=== PATIENT | female | born 1950 | race African-American/Black ===

== ENCOUNTER 2017-05-17 02:23 | Inpatient (IN) | payer MEDICARE, OTHER ==
[~2017-05-17] VITALS: Ht 167.6 cm; Wt 97.5 kg
[2017-05-17] MEDS ORDERED: ACETAMINOPHEN 325 MG TAB PO STA (03:11)
[2017-05-17 03:31] LABS: BASOPHILS % 0.3 % (0.0-1.0); EOSINOPHILS % 0.1 % (0.0-6.0); HEMATOCRIT 25.4 % (34.2-44.1); HEMOGLOBIN 8.3 g/dL (12.0-16.0); MEAN CORPUSCULAR HEMOGLOBIN 32.7 pg (28-32); MEAN CORPUSCULAR HGB CONC 32.7 g/dL (31-35); MONOCYTES % 7.3 % (4.4-11.3); PLATELET COUNT 173 x10e3/uL (140-360); RED BLOOD COUNT 2.54 x10e6/uL (3.6-5.1); RED CELL DISTRIBUTION WIDTH 12.4 % (11.7-14.4)
[2017-05-17 03:32] LABS: LYMPHOCYTES # (AUTO) 0.6 (1.0-3.2); MONOCYTES # (AUTO) 0.5 (0.2-0.8)
[2017-05-17 03:33] LABS: BILIRUBIN,URINE 1+ (NEGATIVE); CLARITY,URINE CLOUDY (CLEAR); COLOR,URINE YELLOW (YELLOW); KETONES,URINE NEGATIVE (NEGATIVE); LEUKOCYTE ESTERASE ,URINE 2+ (NEGATIVE); NITRITE,URINE NEGATIVE (NEGATIVE); PROTEIN,URINE DIPSTICK 2+ (NEGATIVE); URINE UROBILINOGEN 0.2 mg/dL (0.2 - 1)
[2017-05-17 03:34] LABS: INR 1.09; PROTHROMBIN TIME 14.7 seconds (11.9-14.5)
[2017-05-17 03:35] LABS: STREPTOCOCCUS GRP A ANTIGEN NEGATIVE (NEGATIVE)
[2017-05-17 03:37] LABS: PARTIAL THROMBOPLASTIN TIME 32.7 seconds (23.8-35.5)
[2017-05-17 03:46] LABS: ALBUMIN/GLOBULIN RATIO 0.8 (0.8-2.0); ANION GAP 14.7 mmol/L (8-16); CREATININE, SERUM 2.06 mg/dL (0.57-1.11); INFLUENZAE A&B ANTIGEN (RAPID) NEGATIVE (NEGATIVE); MAGNESIUM 2.3 MG/DL (1.3-2.1)
[2017-05-17 03:47] LABS: BACTERIA,URINE MODERATE /HPF; EPITHELIAL CELLS,URINE FEW /LPF; WBC,URINE (MAN) >50 /HPF (0-5)
[2017-05-17 03:49] LABS: POTASSIUM 4.7 mmol/L (3.5-5.1)
[2017-05-17 03:52] LABS: CREATINE KINASE MB 0.5 ng/mL (0.00-5.00); TROPONIN I 0.033 ng/mL (0-0.300)
[2017-05-17 03:54] LABS: B-TYPE NATRIURETIC PEPTIDE2 496.2 pg/mL (0-100)
[2017-05-17] MEDS ORDERED: VANCOMYCIN 1GM/NS 250 ML 250 ML IV STA (05:03)
[2017-05-17 05:32] LABS: CARBAMAZEPINE (TEGRETOL) 8.02 ug/mL (4-12.0)
[2017-05-17] MEDS ORDERED: ONDANSETRON HCL INJ 2 MG/ML VIAL IV PRN (05:45)
--- NOTE | 2017-05-17 06:31 | Diagnostic Imaging Report ---
EXAMINATION: CHEST 2 VIEWS INDICATION: Fever. COMPARISON: None FINDINGS: TUBES and LINES: None. LUNGS: Lungs are not well inflated. Lungs are clear. There is no evidence of pneumonia or pulmonary edema. PLEURA: No pleural effusion or pneumothorax. HEART AND MEDIASTINUM: Cardiac size is mildly enlarged. There are atherosclerotic calcifications within the aorta. BONES AND SOFT TISSUES: No acute osseous lesion. Degenerative changes of the thoracic spine. Soft tissues are unremarkable. UPPER ABDOMEN: No free air under the diaphragm. IMPRESSION: No acute thoracic abnormality. Signed by: Dr. Marbin Vyas M.D. on 05/17/2017 6:28 AM
[2017-05-17] MEDS: CEFTRIAXONE SOD 1 GM VIAL IV SCH ×2 (06:40→18:01)
[2017-05-17] MEDS: SODIUM CHLORIDE 0.9% 1000ML 1,000 ML IV SCH ×2 (06:54→16:03)
[2017-05-17] MEDS: HYDROCODONE/APAP 7.5MG-325MG 1 EA TAB PO PRN ×2 (07:18→15:04)
[2017-05-17] MEDS ORDERED: OXYBUTYNIN CHLOR5 MG PO (07:29)
[2017-05-17] MEDS ORDERED: HYDRALAZINE HCL25 MG PO (07:29)
[2017-05-17] MEDS ORDERED: LOSARTAN POTAS100 MG PO (07:29)
[2017-05-17] MEDS ORDERED: CARBAMAZEPINE200 MG PO (07:29)
[2017-05-17] MEDS ORDERED: DEPAKOTE500 MG PO (07:29)
[2017-05-17] MEDS ORDERED: NAPROXEN500 MG PO (07:29)
[2017-05-17] MEDS ORDERED: CLORAZEPATE D3.75 MG PEG (07:29)
[2017-05-17] MEDS ORDERED: FLUOXETINE HCL20 MG PO (07:29)
[2017-05-17] MEDS ORDERED: FERROUS SULFAT325 MG PO (07:29)
[2017-05-17] MEDS ORDERED: HYDROCHLOROTHIA25 MG PO (07:29)
[2017-05-17] MEDS ORDERED: DICYCLOMINE HCL20 MG PO (07:29)
[2017-05-17] MEDS ORDERED: CLONIDINE HCL0.1 MG PO (07:29)
[2017-05-17] MEDS ORDERED: SUCRALFATE1 GM PO (07:29)
[2017-05-17] MEDS ORDERED: RANITIDINE HCL150 MG PO (07:29)
[2017-05-17] MEDS ORDERED: PRAVASTATIN SOD20 MG (07:29)
[2017-05-17] MEDS ORDERED: CARVEDILOL12.5 MG PO (07:29)
[2017-05-17] MEDS ORDERED: LEVOTHYROXINE75 MCG PO (07:29)
[2017-05-17] MEDS ORDERED: AMLODIPINE BESY10 MG PO (07:29)
[2017-05-17] MEDS ORDERED: VITAMIN D250000 UNIT PO (07:29)
[2017-05-17] MEDS ORDERED: LORATADINE10 MG PO (07:29)
--- NOTE | 2017-05-17 08:18 | Diagnostic Imaging Report ---
PROCEDURE: CT ABDOMEN AND PELVIS WITHOUT CONTRAST TECHNIQUE: The abdomen and pelvis were scanned utilizing a multidetector helical scanner from the diaphragm to the lesser trochanter. No oral or intravenous contrast was administered per renal stone protocol. Coronal and sagittal multiplanar reformations were obtained. COMPARISON: None. INDICATIONS: UTI, RIGHT FLANK PAIN FINDINGS: ABSENCE OF INTRAVENOUS CONTRAST DECREASES SENSITIVITY FOR DETECTION OF FOCAL LESIONS AND VASCULAR PATHOLOGY. LOWER THORAX: Cardiomegaly. Calcified granuloma in the right lower lobe. Ground glass opacities may reflect atelectasis or mild edema. HEPATOBILIARY: No focal hepatic lesion. No intrahepatic biliary ductal dilatation. Small radiopaque calculi layering within the dependent portion of the gallbladder. No pericholecystic inflammation. SPLEEN: No splenomegaly. PANCREAS: No focal masses or ductal dilatation. ADRENALS: Fullness of the left adrenal gland without discrete nodule. No right adrenal nodule. KIDNEYS/URETERS: No hydronephrosis. No renal, ureteral, or bladder calculi. There are multiple pelvic phleboliths. In addition, right and left retroperitoneal calcifications as seen on series 3 image 96 and image 101, respectively are felt to represent ovarian venous phleboliths rather than ureteral calculi in the absence of hydronephrosis or perinephric-periureteral inflammation. No gross renal mass lesion. PELVIC ORGANS/BLADDER: The urinary bladder is partially collapsed around a Martines catheter. The uterus is not identified and has presumably been removed. No adnexal mass. PERITONEUM / RETROPERITONEUM: No ascites. No pneumoperitoneum. LYMPH NODES: No pelvic sidewall, retroperitoneal, or mesenteric lymphadenopathy. VESSELS: Atherosclerotic calcification of the abdominal aorta, major branch vessels, and iliac arterial systems without aneurysmal dilatation. Otherwise limited evaluation in the absence of intravenous contrast. GI TRACT: The large bowel shows no distention or wall thickening. Fecal material is noted throughout the colon. The appendix is not definitively identified. No right lower quadrant inflammatory changes. Postsurgical changes of the stomach related to prior bariatric procedure. No small bowel dilatation to suggest obstruction. BONES AND SOFT TISSUES: No focal soft tissue abnormalities. Small fat containing umbilical hernia. Postsurgical changes of the anterior abdominal wall. No osseous destructive lesions. Multilevel degenerative disc changes and degenerative facet arthropathy of the lumbar spine. IMPRESSION: No CT evidence of urolithiasis. Indwelling Martines catheter with partial collapse of the urinary bladder. Cholelithiasis. Cardiomegaly with subsegmental atelectasis versus interstitial edema in the partially visualized lower lobes. Atherosclerotic vascular disease. Dictated by: Brian Ocampo M.D. on 05/17/2017 at 8:26 Electronically approved by: Brian Ocampo M.D. on 05/17/2017 at 8:26
[2017-05-17 11:19] LABS: CREATINE KINASE MB 0.6 ng/mL (0.00-5.00); TROPONIN I 0.039 ng/mL (0-0.300)
[2017-05-17 11:37] LABS: ANION GAP 14.9 mmol/L (8-16); CALCIUM 8.2 mg/dL (8.4-10.2); CREATININE, SERUM 1.99 mg/dL (0.57-1.11); POTASSIUM 3.9 mmol/L (3.5-5.1)
--- NOTE | 2017-05-17 12:52 | History and Physical ---
PRIMARY CARE PHYSICIAN: Dr. Brooks. CHIEF COMPLAINT: Fever and chills. HISTORY OF PRESENT ILLNESS: This is a 66-year-old woman with a history of hypertension, now developing fever and chills. Temperature was 100.4 Fahrenheit at home. Therefore, came to the hospital. Here she is found to have a urinary tract infection and acute kidney injury. She is admitted for further evaluation and management. Denies any diarrhea, denies any nausea or vomiting. Vital signs have been reviewed, her temperature 102.3 T-max. PAST MEDICAL HISTORY: Hypertension. Thyroid disease. Arthritis. PAST SURGICAL HISTORY: Eyes. Legs. Hysterectomy. Gastric bypass. 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 ALLERGIES: PER THE ELECTRONIC MEDICAL RECORDS. FAMILY HISTORY/SOCIAL HISTORY: Patient is single. She has 1 child. No alcohol, illicit drugs or cigarettes. MEDICATIONS: Per the electronic medical records. Reviewed. REVIEW OF SYSTEMS: Denies any dizziness, chest pain. PHYSICAL EXAMINATION GENERAL APPEARANCE: A tired-appearing woman resting in bed. HEENT: Anicteric. Pupils responsive to light. No oral lesions. CARDIOVASCULAR: Normal S1/S2. LUNGS: Moderate breath sounds. ABDOMEN: Soft, nontender, nondistended. EXTREMITIES: No edema or calf tenderness. : She has Martines in place. SKIN: Dry. PSYCHIATRIC: Flat affect. NEUROLOGICALLY: Alert and oriented x3. Moving all extremities. LABS: Reviewed. ASSESSMENT AND PLAN: This is a 66-year-old woman. 1. Urinary tract infection/fever. Will treat with antibiotics and follow up cultures. 2. Acute kidney injury. Rehydrate, then reassess. 3. Metabolic acidosis. Rehydrate patient and reassess later today. 4. Acute delirium, improving with antibiotics. 5. Thyroid disease. Will obtain a TSH. 6. Hypertension. Will continue her calcium channel fariba. 7. Prophylaxis. Will use SCDs. 8. Disposition. Follow up repeat labs later today. Job#: [id number] EV
[2017-05-17] MEDS: HYDRALAZINE HCL 25 MG TAB PO SCH ×3 (13:17→22:00)
[2017-05-17] MEDS: ACETAMINOPHEN 325 MG TAB PO PRN ×2 (15:50→21:44)
[2017-05-17] MEDS ORDERED: SODIUM CHLORIDE 0.9% 50ML 50 ML ONE (17:12)
[2017-05-17] MEDS: CARBAMAZEPINE 200 MG TAB PO SCH (17:30)
[2017-05-17] MEDS: CARVEDILOL 12.5 MG TAB PO SCH (17:30)
[2017-05-17] MEDS: SUCRALFATE 1 GM TAB PO SCH (18:01)
[2017-05-17] MEDS: DEPAKOTE DELAYED-RELEASE TAB 500 MG PO SCH (18:01)
[2017-05-17 20:12] LABS: CREATINE KINASE MB 0.5 ng/mL (0.00-5.00); TROPONIN I 0.068 ng/mL (0-0.300)
[2017-05-17] MEDS: CEFEPIME HCL 1 GM VIAL IV SCH (20:40)
[2017-05-17] MEDS: CLINDAMYCIN 300MG 50 ML IV SCH (21:09)
[2017-05-18] VITALS (7 sets, daily range): BP systolic 142–174; BP diastolic 59–85
[2017-05-18] MEDS: SODIUM CHLORIDE 0.9% 1000ML 1,000 ML IV SCH ×2 (01:38→23:00)
[2017-05-18] MEDS: ACETAMINOPHEN 325 MG TAB PO PRN ×2 (05:10→16:10)
[2017-05-18] MEDS: LEVOTHYROXINE SODIUM 75 MCG TAB PO SCH (05:38)
[2017-05-18] MEDS: CLINDAMYCIN 300MG 50 ML IV SCH ×3 (05:38→21:38)
[2017-05-18 07:20] LABS: BASOPHILS % 0.2 % (0.0-1.0); EOSINOPHILS % 0.4 % (0.0-6.0); LYMPHOCYTES # (AUTO) 0.7 (1.0-3.2); LYMPHOCYTES % 9.2 % (18.0-39.1); MEAN CORPUSCULAR HEMOGLOBIN 32.6 pg (28-32); MEAN CORPUSCULAR HGB CONC 33.2 g/dL (31-35); MEAN CORPUSCULAR VOLUME 98.3 fL (81-99); MONOCYTES # (AUTO) 0.7 (0.2-0.8); MONOCYTES % 8.9 % (4.4-11.3); NEUTROPHILS # (AUTO) 6.5 (2.1-6.9); NEUTROPHILS % 81.1 % (38.7-80.0); PLATELET COUNT 117 x10e3/uL (140-360); RED BLOOD COUNT 2.33 x10e6/uL (3.6-5.1); RED CELL DISTRIBUTION WIDTH 12.3 % (11.7-14.4)
[2017-05-18 07:32] LABS: HEMATOCRIT 22.9 % (34.2-44.1); HEMOGLOBIN 7.6 g/dL (12.0-16.0)
[2017-05-18 07:49] LABS: ALBUMIN 2.4 g/dL (3.5-5.0); ALBUMIN/GLOBULIN RATIO 0.7 (0.8-2.0); ANION GAP 11.9 mmol/L (8-16); CALCIUM 8.2 mg/dL (8.4-10.2); CREATININE, SERUM 1.67 mg/dL (0.57-1.11); POTASSIUM 3.9 mmol/L (3.5-5.1)
[2017-05-18] MEDS ORDERED: LEVOTHYROXINE SODIUM 75 MCG TAB PO SCH (09:00)
--- NOTE | 2017-05-18 09:11 | Progress Note ---
DATE: May 18, 2017 TIME: 8:37 a.m. OVERNIGHT: Patient was febrile at 101.2. T-max is 102.3. REVIEW OF SYSTEMS: Denies any dizziness. PHYSICAL EXAMINATION GENERAL: A tired-appearing woman resting in bed. HEENT: Anicteric. CARDIOVASCULAR: Normal S1 and S2. LUNGS: Moderate breath sounds. ABDOMEN: Soft, nontender and nondistended. EXTREMITIES: No edema. : She has a Martines. SKIN: Dry. PSYCHIATRIC: Flat affect. NEUROLOGICAL: Alert and oriented times 3. LABS: Reviewed. MEDICATIONS: Reviewed. ASSESSMENT: A 66-year-old woman with: 1. Severe sepsis present on admission with urinary tract infection and acute kidney injury. 2. Acute kidney injury. 3. Metabolic acidosis. 4. Acute delirium. 5. Thyroid disease, stage 1. 6. Hypertension. 7. Bacteremia: Cultures pending. Speciation and sensitivity pending. PLAN 1. Continue IV clindamycin and IV cefepime. May need to adjust antibiotics due to the patient's continued febrile state. She has no leukocytosis. 2. Worsening normocytic anemia. Hemoglobin dropped to 7.6. Will recheck the hemoglobin at noon today. 3. Renal dysfunction is improving. Will continue care. 4. Metabolic acidosis. Will add bicarb to the fluids. 5. Very low TSH. Will check free T4. 6. Utilize SCDs. No anticoagulants. 7. Continue supportive care and await culture results. Check hemoglobin later today. Continue PPI. Job#: [id number] JAY
[2017-05-18] MEDS: CARVEDILOL 12.5 MG TAB PO SCH ×2 (09:15→21:38)
[2017-05-18] MEDS: DEPAKOTE DELAYED-RELEASE TAB 500 MG PO SCH ×2 (09:15→16:02)
[2017-05-18] MEDS: FAMOTIDINE 20 MG/2 ML VIAL IV SCH ×2 (09:15→16:02)
[2017-05-18] MEDS: HYDRALAZINE HCL 25 MG TAB PO SCH ×4 (09:15→21:38)
[2017-05-18] MEDS: LORATADINE 10 MG TAB PO SCH (09:15)
[2017-05-18] MEDS: OXYBUTYNIN CHLORIDE 5 MG TAB PO SCH (09:15)
[2017-05-18] MEDS: SUCRALFATE 1 GM TAB PO SCH ×2 (09:15→16:02)
[2017-05-18] MEDS: CARBAMAZEPINE 200 MG TAB PO SCH ×2 (09:16→16:02)
[2017-05-18] MEDS: AMLODIPINE BESYLATE 10 MG TAB PO SCH (09:16)
[2017-05-18] MEDS: FLUOXETINE HCL 20 MG CAP PO SCH (09:16)
[2017-05-18 09:31] LABS: FERRITIN 508.32 ng/mL (4.63-204.00); FREE T4 (FREE THYROXINE) 0.72 ng/dL (0.8-1.8)
[2017-05-18 10:09] LABS: BAND NEUTROPHILS % (MANUAL) 12 %; EOSINOPHILS % (MANUAL) 2 % (0-7); LYMPHOCYTES % (MANUAL) 7 % (19-48); MONOCYTES % (MANUAL) 3 % (3.4-9.0); NEUTROPHILS % (MANUAL) 75 % (40-74)
[2017-05-18 10:13] LABS: ANISOCYTOSIS SLIGHT; HYPOCHROMASIA SLIGHT; PLATELET ESTIMATE SLIGHTLY DECREASED; PLATELET MORPHOLOGY COMMENT NORMAL; RBC MORPHOLOGY COMMENT NORMAL
[2017-05-18 12:25] LABS: HEMATOCRIT 22.8 % (34.2-44.1)
[2017-05-18 12:28] LABS: HEMOGLOBIN 7.6 g/dL (12.0-16.0)
[2017-05-18] MEDS ORDERED: CARVEDILOL 12.5 MG TAB PO ONE (12:30)
[2017-05-18] MEDS: CEFEPIME HCL 1 GM VIAL IV SCH (20:09)
[2017-05-18] MEDS: ALBUTEROL/IPRATROPIUM 3 ML NEB NEB PRN (20:50)
[2017-05-18] MEDS: HYDROCODONE/APAP 7.5MG-325MG 1 EA TAB PO PRN (21:39)
[2017-05-19] VITALS (7 sets, daily range): BP systolic 133–174; BP diastolic 57–76
[2017-05-19] MEDS: ACETAMINOPHEN 325 MG TAB PO PRN (04:31)
[2017-05-19] MEDS: CLINDAMYCIN 300MG 50 ML IV SCH (05:27)
[2017-05-19] MEDS: LEVOTHYROXINE SODIUM 75 MCG TAB PO SCH (05:27)
[2017-05-19] MEDS ORDERED: AZTREONAM 0.5 GM in WATER STERILE 10ML VIAL 10 ML IV SCH ×2 (08:15→11:00)
--- NOTE | 2017-05-19 08:42 | Progress Note ---
DATE: May 19, 2017 TIME: 8:10 a.m. OVERNIGHT: She had some fever. REVIEW OF SYSTEMS: Denies any dizziness. PHYSICAL EXAMINATION VITAL SIGNS: Reviewed. GENERAL: A tired-appearing woman resting in bed. HEENT: Anicteric. CARDIOVASCULAR: Normal S1 and S2. LUNGS: Moderate breath sounds. ABDOMEN: Soft, nontender and nondistended. EXTREMITIES: No edema. SKIN: Dry. PSYCHIATRIC: Flat affect. NEUROLOGICAL: Alert and oriented times 3. : Martines in place. LABS: Reviewed. MEDICATIONS: Reviewed. ASSESSMENT: A 66-year-old woman with: 1. Severe sepsis present on admission with urinary tract infection and acute kidney injury. 2. Acute kidney injury. 3. Metabolic acidosis. 4. Acute delirium. 5. Hypothyroidism. 6. Hypertension. 7. Bacteremia. PLAN 1. Continue IV clindamycin, IV cefepime. 2. Patient has gram-negative gisel bacteremia. Will continue antibiotics and follow up cultures. She has no leukocytosis. 3. Moderate to severe anemia. Hemoglobin was 7.6 yesterday, which was stable. We will recheck today. 4. Metabolic acidosis. Will add bicarb. 5. Acute kidney injury, improving. Will reassess today. 6. Iron deficiency anemia. Iron level is 10, percent saturation 5. Reduce IV fluids. 7. Low TSH and low T4. Will consult Dr. Lal to evaluate. Could represent subclinical disease. 8. Obtain labs today. 9. Receiving IV fluids with bicarb. Will add oral bicarb as noted above. 10. Continue IV clindamycin and IV cefepime. Will need to reculture the patient in terms of blood cultures. Also, will remove Martines. 11. Physical therapy consultation. Job#: [id number] JAY
[2017-05-19] MEDS: SODIUM BICARBONATE 650 MG TAB PO SCH ×2 (09:00→17:37)
[2017-05-19 09:07] LABS: BASOPHILS % 0.3 % (0.0-1.0); EOSINOPHILS # (AUTO) 0.3 (0.0-0.4); EOSINOPHILS % 4.1 % (0.0-6.0); HEMATOCRIT 24.6 % (34.2-44.1); LYMPHOCYTES % 12.3 % (18.0-39.1); MEAN CORPUSCULAR HEMOGLOBIN 31.9 pg (28-32); MEAN CORPUSCULAR HGB CONC 32.1 g/dL (31-35); MEAN CORPUSCULAR VOLUME 99.2 fL (81-99); MONOCYTES # (AUTO) 0.5 (0.2-0.8); MONOCYTES % 6.7 % (4.4-11.3); NEUTROPHILS % 76.3 % (38.7-80.0); PLATELET COUNT 137 x10e3/uL (140-360); RED BLOOD COUNT 2.48 x10e6/uL (3.6-5.1); RED CELL DISTRIBUTION WIDTH 12.6 % (11.7-14.4)
[2017-05-19 09:15] LABS: HEMOGLOBIN 7.9 g/dL (12.0-16.0)
[2017-05-19 09:25] LABS: ANION GAP 13.9 mmol/L (8-16); CALCIUM 8.3 mg/dL (8.4-10.2); CREATININE, SERUM 1.55 mg/dL (0.57-1.11); POTASSIUM 3.9 mmol/L (3.5-5.1)
[2017-05-19] MEDS: AMLODIPINE BESYLATE 10 MG TAB PO SCH (09:30)
[2017-05-19] MEDS: LORATADINE 10 MG TAB PO SCH (09:30)
[2017-05-19] MEDS: OXYBUTYNIN CHLORIDE 5 MG TAB PO SCH (09:30)
[2017-05-19] MEDS: HYDRALAZINE HCL 25 MG TAB PO SCH ×4 (09:30→20:42)
[2017-05-19] MEDS: CARVEDILOL 12.5 MG TAB PO SCH ×2 (09:30→20:42)
[2017-05-19] MEDS: FAMOTIDINE 20 MG/2 ML VIAL IV SCH ×2 (09:30→17:37)
[2017-05-19] MEDS: DEPAKOTE DELAYED-RELEASE TAB 500 MG PO SCH ×2 (09:30→17:37)
[2017-05-19] MEDS: SUCRALFATE 1 GM TAB PO SCH ×2 (09:30→17:37)
[2017-05-19] MEDS: FLUOXETINE HCL 20 MG CAP PO SCH (09:30)
[2017-05-19] MEDS: CARBAMAZEPINE 200 MG TAB PO SCH ×2 (09:31→17:37)
[2017-05-19] MEDS: SODIUM FERRIC GLUCONATE COMPLX 125 MG in SODIUM CHLORIDE 0.9% 100 ML 100 ML IV SCH (10:00)
[2017-05-19] MEDS: SODIUM CHLORIDE 0.9% 1000ML 1,000 ML IV SCH ×2 (10:53→17:42)
[2017-05-19] MEDS ORDERED: AZTREONAM 1 GM VIAL IV SCH (11:00)
[2017-05-19] MEDS: AZTREONAM IV SCH ×2 (11:00→18:28)
[2017-05-19] MEDS ORDERED: AZTREONAM (AZACTAM) 0.5 GM in WATER STERILE 10ML VIAL 10 ML IV SCH (11:00)
[2017-05-19] MEDS: WATER STERILE IV SCH ×2 (11:00→18:28)
[2017-05-19] MEDS: HYDROCODONE/APAP 7.5MG-325MG 1 EA TAB PO PRN ×2 (11:59→20:58)
--- NOTE | 2017-05-19 15:15 | Consultation ---
DATE OF CONSULTATION: May 19, 2017 ENDOCRINE CONSULTATION This is a patient of Dr. Werner. Thank you very much for referring this patient. This is a 66-year-old black female who is referred to me for evaluation of abnormal thyroid function tests. Patient came to the hospital with a history of fever, chills. She was found to have urinary tract infection. She also has history of hypothyroidism and has been on Synthroid 0.075 mg once daily. During the hospital stay, her TSH is low. Patient also has a very strong family history of diabetes. Her blood sugars have been running between 122 and 190. Her hemoglobin is significantly low, and this patient is getting iron transfusions for the same as well. PHYSICAL EXAMINATION: GENERAL: Today patient is alert, awake, a little bit apprehensive. She is moderately overweight. VITAL SIGNS: Her heart rate is around 78. Blood pressure 130/80 mmHg. HEENT: Examination essentially unremarkable. Thyroid is barely palpable. Clinically she looks near euthyroid. CHEST: Bilateral vesicular breathing. She has mild bronchospasm. CARDIAC: Both 1st and 2nd heart sounds. There is no 3rd or 4th heart sound. Ejection sound grade 2/6. Patient has tenderness in the epigastric and the right upper quadrant area. CLINICAL IMPRESSION: 1. History of hypothyroidism. 2. Acute urinary tract infection. 3. Sepsis. 4. Hypertension. 5. Rule out diabetes mellitus with hyperglycemia. The plan at this time is to do a free T3, free T4, TSH. Hold the thyroid medications for now. Will also do a hemoglobin A1c and monitor her blood sugars closely. Thanks for referring this patient. I will be following this patient with you. Job#: [id number] FRANCOIS
[2017-05-19] MEDS: NYSTATIN 15 GM POWDER UD BTL TOP SCH ×2 (15:29→20:42)
[2017-05-19] MEDS: ALBUTEROL/IPRATROPIUM 3 ML NEB NEB PRN (19:25)
[2017-05-19] MEDS: CEFEPIME HCL 1 GM VIAL IV SCH (20:39)
[2017-05-20] VITALS (7 sets, daily range): BP systolic 134–200; BP diastolic 58–99
[2017-05-20] MEDS: SODIUM CHLORIDE 0.9% 1000ML 1,000 ML IV SCH ×2 (03:38→14:57)
[2017-05-20] MEDS: WATER STERILE IV SCH ×3 (03:45→19:59)
[2017-05-20] MEDS: AZTREONAM IV SCH ×3 (03:45→19:59)
[2017-05-20] MEDS: LEVOTHYROXINE SODIUM 75 MCG TAB PO SCH (06:49)
--- NOTE | 2017-05-20 08:16 | Progress Note ---
DATE: May 20, 2017 TIME: 7:20 a.m. OVERNIGHT: No events. REVIEW OF SYSTEMS: Denies any dizziness or chest pain. Vital signs reviewed. PHYSICAL EXAMINATION GENERAL: A tired-appearing woman resting in bed. HEENT: Anicteric. CARDIOVASCULAR: Normal S1 and S2. LUNGS: Moderate breath sounds. ABDOMEN: Soft, nontender and nondistended. EXTREMITIES: No edema. SKIN: Dry. PSYCHIATRIC: Flat affect. LABS: Reviewed. MEDICATIONS: Reviewed. ASSESSMENT: A 66-year-old woman with 1. Severe sepsis present on admission with urinary tract infection and acute kidney injury. 2. Acute kidney injury. 3. Metabolic acidosis. 4. Acute delirium. 5. Hypothyroidism. Low thyroid-stimulating hormone and low T4. 6. Hypertension. 7. Bacteremia with Escherichia coli. PLAN 1. Follow up thyroid function studies by Dr. Lal. Thyroid medicines on hold. 2. Continue IV cefepime for bacteremia. Follow up sensitivity. 3. Continue IV fluids. 4. Continue bicarbonate. 5. Continue IV aztreonam. 6. Check H and H. 7. Check BMP. 8. LTAC versus SNF evaluation. Job#: [id number]
[2017-05-20] MEDS: SODIUM FERRIC GLUCONATE COMPLX 125 MG in SODIUM CHLORIDE 0.9% 100 ML 100 ML IV SCH (09:00)
[2017-05-20] MEDS: FAMOTIDINE 20 MG/2 ML VIAL IV SCH ×2 (09:18→17:03)
[2017-05-20] MEDS: OXYBUTYNIN CHLORIDE 5 MG TAB PO SCH (09:18)
[2017-05-20] MEDS: CARBAMAZEPINE 200 MG TAB PO SCH ×2 (09:18→17:03)
[2017-05-20] MEDS: DEPAKOTE DELAYED-RELEASE TAB 500 MG PO SCH ×2 (09:18→17:03)
[2017-05-20] MEDS: LORATADINE 10 MG TAB PO SCH (09:18)
[2017-05-20] MEDS: SODIUM BICARBONATE 650 MG TAB PO SCH ×2 (09:18→17:03)
[2017-05-20] MEDS: HYDRALAZINE HCL 25 MG TAB PO SCH ×4 (09:18→20:04)
[2017-05-20] MEDS: CARVEDILOL 12.5 MG TAB PO SCH ×2 (09:18→20:04)
[2017-05-20] MEDS: FLUOXETINE HCL 20 MG CAP PO SCH (09:18)
[2017-05-20] MEDS: NYSTATIN 15 GM POWDER UD BTL TOP SCH ×3 (09:18→21:41)
[2017-05-20] MEDS: SUCRALFATE 1 GM TAB PO SCH ×2 (09:18→17:03)
[2017-05-20] MEDS: AMLODIPINE BESYLATE 10 MG TAB PO SCH (09:18)
[2017-05-20] MEDS ORDERED: WATER STERILE 10 ML VIAL INJ PRN (17:00)
[2017-05-20] MEDS: CEFEPIME HCL 1 GM VIAL IV SCH (20:00)
[2017-05-20] MEDS ORDERED: ALPRAZOLAM 0.25 MG TAB PO PRN (20:00)
[2017-05-20] MEDS ORDERED: LABETALOL HCL IV 5 MG/ML 20ML MDV IV ONE (20:15)
[2017-05-20] MEDS: HYDROCODONE/APAP 7.5MG-325MG 1 EA TAB PO PRN (20:25)
[2017-05-21] VITALS: BP 157/81
[2017-05-21] MEDS: AZTREONAM IV SCH ×3 (02:10→19:15)
[2017-05-21] MEDS: WATER STERILE IV SCH ×3 (02:10→19:15)
[2017-05-21] MEDS: SODIUM CHLORIDE 0.9% 1000ML 1,000 ML IV SCH ×2 (02:10→19:38)
[2017-05-21 04:00] VITALS: BP 157/80
[2017-05-21] MEDS: LEVOTHYROXINE SODIUM 75 MCG TAB PO SCH (05:17)
[2017-05-21] MEDS: HYDROCODONE/APAP 7.5MG-325MG 1 EA TAB PO PRN ×2 (05:22→20:56)
[2017-05-21 08:00] VITALS: BP 178/77
[2017-05-21] MEDS: FAMOTIDINE 20 MG/2 ML VIAL IV SCH ×2 (09:38→17:37)
[2017-05-21] MEDS: LORATADINE 10 MG TAB PO SCH (09:38)
[2017-05-21] MEDS: HYDRALAZINE HCL 25 MG TAB PO SCH ×4 (09:38→20:47)
[2017-05-21] MEDS: SUCRALFATE 1 GM TAB PO SCH ×2 (09:38→17:37)
[2017-05-21] MEDS: OXYBUTYNIN CHLORIDE 5 MG TAB PO SCH (09:39)
[2017-05-21] MEDS: NYSTATIN 15 GM POWDER UD BTL TOP SCH ×3 (09:39→20:57)
[2017-05-21] MEDS: DEPAKOTE DELAYED-RELEASE TAB 500 MG PO SCH ×2 (09:39→17:37)
[2017-05-21] MEDS: CARVEDILOL 12.5 MG TAB PO SCH ×2 (09:39→20:48)
[2017-05-21] MEDS: CARBAMAZEPINE 200 MG TAB PO SCH ×2 (09:39→17:37)
[2017-05-21] MEDS: SODIUM FERRIC GLUCONATE COMPLX 125 MG in SODIUM CHLORIDE 0.9% 100 ML 100 ML IV SCH (09:39)
[2017-05-21] MEDS: SODIUM BICARBONATE 650 MG TAB PO SCH ×2 (09:39→17:37)
[2017-05-21] MEDS: AMLODIPINE BESYLATE 10 MG TAB PO SCH (09:39)
[2017-05-21] MEDS: FLUOXETINE HCL 20 MG CAP PO SCH (09:39)
[2017-05-21 12:00] VITALS: BP 141/72
[2017-05-21 16:00] VITALS: BP 180/82
[2017-05-21 20:00] VITALS: BP 152/75
[2017-05-21] MEDS: CEFEPIME HCL 1 GM VIAL IV SCH (20:46)
[2017-05-22] VITALS: BP 154/71
[2017-05-22] MEDS: HYDROCODONE/APAP 7.5MG-325MG 1 EA TAB PO PRN ×2 (02:59→21:02)
[2017-05-22] MEDS: WATER STERILE IV SCH ×3 (03:00→17:52)
[2017-05-22] MEDS: AZTREONAM IV SCH ×3 (03:00→17:52)
[2017-05-22] MEDS: ACETAMINOPHEN 325 MG TAB PO PRN ×2 (03:00→20:23)
[2017-05-22 04:00] VITALS: BP 167/76
[2017-05-22] MEDS: LEVOTHYROXINE SODIUM 75 MCG TAB PO SCH (06:13)
[2017-05-22 08:00] VITALS: BP 200/86
[2017-05-22] MEDS: CARVEDILOL 12.5 MG TAB PO SCH ×2 (08:00→20:23)
[2017-05-22] MEDS: LORATADINE 10 MG TAB PO SCH (08:00)
[2017-05-22] MEDS: FAMOTIDINE 20 MG/2 ML VIAL IV SCH ×2 (08:00→17:07)
[2017-05-22] MEDS: SUCRALFATE 1 GM TAB PO SCH ×2 (08:00→17:07)
[2017-05-22] MEDS: HYDRALAZINE HCL 25 MG TAB PO SCH ×4 (08:00→20:22)
[2017-05-22] MEDS: CARBAMAZEPINE 200 MG TAB PO SCH ×2 (08:01→17:07)
[2017-05-22] MEDS: NYSTATIN 15 GM POWDER UD BTL TOP SCH ×3 (08:01→21:00)
[2017-05-22] MEDS: DEPAKOTE DELAYED-RELEASE TAB 500 MG PO SCH ×2 (08:01→17:07)
[2017-05-22] MEDS: AMLODIPINE BESYLATE 10 MG TAB PO SCH (08:01)
[2017-05-22] MEDS: OXYBUTYNIN CHLORIDE 5 MG TAB PO SCH (08:01)
[2017-05-22] MEDS: FLUOXETINE HCL 20 MG CAP PO SCH (08:01)
[2017-05-22] MEDS: SODIUM BICARBONATE 650 MG TAB PO SCH ×2 (08:01→17:07)
[2017-05-22] MEDS: SODIUM FERRIC GLUCONATE COMPLX 125 MG in SODIUM CHLORIDE 0.9% 100 ML 100 ML IV SCH (09:00)
--- NOTE | 2017-05-22 09:45 | Progress Note ---
DATE: May 21, 2017 at 1:55 p.m. SUBJECTIVE: Overnight no events. REVIEW OF SYSTEMS: Denies any dizziness or chest pain. OBJECTIVE VITAL SIGNS: Reviewed. GENERAL APPEARANCE: A tired-appearing woman walking in the hallway with physical therapist. CARDIOVASCULAR: Good chest expansion. ABDOMEN: Soft and nontender. EXTREMITIES: There is no edema. NEUROLOGIC: Alert and appropriate. Moving all extremities. SKIN: Dry. PSYCHIATRIC: Normal affect. LABS: Reviewed. MEDICATIONS: Reviewed. ASSESSMENT AND PLAN: A 66-year-old woman. 1. Severe sepsis. Presented on admission with urinary tract infection and acute kidney injury. 2. Acute kidney injury. 3. Metabolic acidosis. 4. Acute delirium. 5. Hypothyroidism. 6. Hypertension. 7. Bacteremia with Escherichia coli. 8. Worsening normocytic anemia. PLAN: 1. Continue IV cefepime for bacteremia. 2. Received IV fluids. 3. Received IV aztreonam. 4. Obtain hemoglobin and hematocrit today. 5. Renal function continues to improve. 6. Hemoglobin A1c was 4.9. Today hemoglobin was 12.9. 7. Repeat blood cultures. Negative x 48 hours. 8. Placement is pending. Job#: [id number]
[2017-05-22 10:29] LABS: BASOPHILS % 0.7 % (0.0-1.0); EOSINOPHILS # (AUTO) 0.3 (0.0-0.4); HEMATOCRIT 24.6 % (34.2-44.1); LYMPHOCYTES # (AUTO) 1.2 (1.0-3.2); LYMPHOCYTES % 21.1 % (18.0-39.1); MEAN CORPUSCULAR HEMOGLOBIN 32.2 pg (28-32); MEAN CORPUSCULAR HGB CONC 32.1 g/dL (31-35); MEAN CORPUSCULAR VOLUME 100.4 fL (81-99); MONOCYTES # (AUTO) 0.5 (0.2-0.8); MONOCYTES % 8.8 % (4.4-11.3); NEUTROPHILS # (AUTO) 3.5 (2.1-6.9); NEUTROPHILS % 61.1 % (38.7-80.0); PLATELET COUNT 219 x10e3/uL (140-360); RED BLOOD COUNT 2.45 x10e6/uL (3.6-5.1); RED CELL DISTRIBUTION WIDTH 13.2 % (11.7-14.4)
[2017-05-22 10:32] LABS: HEMOGLOBIN 7.9 g/dL (12.0-16.0)
[2017-05-22 10:43] LABS: ANION GAP 14.2 mmol/L (8-16); BLOOD UREA NITROGEN 24 mg/dL (7-26); BUN/CREATININE RATIO 24 (6-25); CALCIUM 8.2 mg/dL (8.4-10.2); CARBON DIOXIDE 15 mmol/L (22-29); CHLORIDE 118 mmol/L (98-107); EST GLOMERULAR FILTRATION RATE > 60 ML/MIN (60-); GLUCOSE 114 mg/dL (74-118); POTASSIUM 4.2 mmol/L (3.5-5.1); SODIUM 143 mmol/L (136-145)
[2017-05-22] MEDS: NIFEDIPINE CR 30 MG TAB PO SCH ×2 (11:30→20:23)
[2017-05-22 12:00] VITALS: BP 174/69
[2017-05-22 12:16] LABS: BAND NEUTROPHILS % (MANUAL) 11 %; EOSINOPHILS % (MANUAL) 5 % (0-7); LYMPHOCYTES % (MANUAL) 31 % (19-48); MONOCYTES % (MANUAL) 1 % (3.4-9.0); NEUTROPHILS % (MANUAL) 52 % (40-74); PLATELET ESTIMATE ADEQUATE; PLATELET MORPHOLOGY COMMENT NORMAL; RBC MORPHOLOGY COMMENT NORMAL
[2017-05-22] MEDS: SODIUM CHLORIDE 0.9% 1000ML 1,000 ML IV SCH ×2 (15:38→17:11)
[2017-05-22 16:00] VITALS: BP 181/83
[2017-05-22 17:11] VITALS: BP 181/83
[2017-05-22] MEDS: CEFEPIME HCL 1 GM VIAL IV SCH (20:22)
[2017-05-23] VITALS (7 sets, daily range): BP systolic 151–205; BP diastolic 62–96
[2017-05-23] MEDS: AZTREONAM IV SCH (02:15)
[2017-05-23] MEDS: WATER STERILE IV SCH (02:15)
--- NOTE | 2017-05-23 04:10 | Progress Note ---
DATE: May 22, 2017 TIME: 10 a.m. OVERNIGHT: No events. REVIEW OF SYSTEMS: Denies any dizziness. PHYSICAL EXAMINATION VITAL SIGNS: Reviewed. Blood pressure elevated. GENERAL: A tired-appearing woman resting in bed. HEENT: Anicteric. CARDIOVASCULAR: Normal S1 and S2. LUNGS: Moderate breath sounds. ABDOMEN: Soft, nontender and nondistended. EXTREMITIES: No edema. SKIN: Dry. PSYCHIATRIC: Normal affect. LABS: Reviewed. MEDICATIONS: Reviewed. ASSESSMENT: A 66-year-old woman with: 1. Severe sepsis. 2. Acute kidney injury. 3. Metabolic acidosis. 4. Acute delirium. 5. Hypothyroidism. 6. Hypertension. 7. Bacteremia with Escherichia coli. PLAN 1. Follow up blood counts. 2. Titrate antihypertensive medications up and change calcium channel fariba to control blood pressure. 3. Continue IV cefepime. 4. Continue anxiolytics. 5. Continue physical therapy. 6. Discharge planning. Follow up repeat blood cultures. Job#: [id number] OR
[2017-05-23] MEDS: HYDROCODONE/APAP 7.5MG-325MG 1 EA TAB PO PRN ×2 (05:56→19:51)
[2017-05-23] MEDS: LEVOTHYROXINE SODIUM 75 MCG TAB PO SCH (05:56)
[2017-05-23 07:31] LABS: BASOPHILS % 0.4 % (0.0-1.0); EOSINOPHILS # (AUTO) 0.4 (0.0-0.4); EOSINOPHILS % 5.5 % (0.0-6.0); LYMPHOCYTES # (AUTO) 1.4 (1.0-3.2); LYMPHOCYTES % 20.2 % (18.0-39.1); MEAN CORPUSCULAR HEMOGLOBIN 32.5 pg (28-32); MEAN CORPUSCULAR HGB CONC 32.7 g/dL (31-35); MEAN CORPUSCULAR VOLUME 99.5 fL (81-99); MONOCYTES # (AUTO) 0.5 (0.2-0.8); MONOCYTES % 7.4 % (4.4-11.3); NEUTROPHILS # (AUTO) 4.2 (2.1-6.9); NEUTROPHILS % 62.5 % (38.7-80.0); PLATELET COUNT 258 x10e3/uL (140-360); RED BLOOD COUNT 2.12 x10e6/uL (3.6-5.1); RED CELL DISTRIBUTION WIDTH 13.2 % (11.7-14.4)
[2017-05-23 07:34] LABS: HEMATOCRIT 21.1 % (34.2-44.1)
[2017-05-23 07:35] LABS: HEMOGLOBIN 6.9 g/dL (12.0-16.0)
[2017-05-23] MEDS: FAMOTIDINE 20 MG/2 ML VIAL IV SCH ×2 (10:08→17:45)
[2017-05-23] MEDS: CARVEDILOL 12.5 MG TAB PO SCH ×2 (10:09→20:17)
[2017-05-23] MEDS: FLUOXETINE HCL 20 MG CAP PO SCH (10:09)
[2017-05-23] MEDS: OXYBUTYNIN CHLORIDE 5 MG TAB PO SCH (10:09)
[2017-05-23] MEDS: HYDRALAZINE HCL 25 MG TAB PO SCH ×4 (10:09→20:16)
[2017-05-23] MEDS: SUCRALFATE 1 GM TAB PO SCH ×2 (10:09→17:45)
[2017-05-23] MEDS: NIFEDIPINE CR 30 MG TAB PO SCH ×2 (10:09→20:17)
[2017-05-23] MEDS: DEPAKOTE DELAYED-RELEASE TAB 500 MG PO SCH ×2 (10:09→17:45)
[2017-05-23] MEDS: LORATADINE 10 MG TAB PO SCH (10:09)
[2017-05-23] MEDS: SODIUM BICARBONATE 650 MG TAB PO SCH ×2 (10:09→17:45)
[2017-05-23] MEDS: CARBAMAZEPINE 200 MG TAB PO SCH ×2 (10:09→17:45)
[2017-05-23] MEDS: NYSTATIN 15 GM POWDER UD BTL TOP SCH ×3 (10:10→21:00)
[2017-05-23] MEDS: SODIUM FERRIC GLUCONATE COMPLX 125 MG in SODIUM CHLORIDE 0.9% 100 ML 100 ML IV SCH (10:52)
[2017-05-23] MEDS: AZTREONAM (AZACTAM) 0.5 GM in SODIUM CHLORIDE 0.9% 50ML 50 ML IV SCH ×2 (12:14→19:51)
--- NOTE | 2017-05-23 14:02 | Progress Note ---
DATE: May 23, 2017 TIME: 08:05 a.m. OVERNIGHT: No events. REVIEW OF SYSTEMS: Denies any dizziness. PHYSICAL EXAMINATION VITAL SIGNS: Reviewed. GENERAL: A tired-appearing woman resting in bed. HEENT: Anicteric. CARDIOVASCULAR: Normal S1 and S2, no heart murmurs. ABDOMEN: Soft, nontender, and nondistended. EXTREMITIES: No edema. SKIN: Dry. PSYCHIATRIC: Flat affect. LABS: Reviewed. MEDICATIONS: Reviewed. ASSESSMENT: A 66-year-old woman with: 1. Severe sepsis/bacteremia with Escherichia coli. 2. Acute kidney injury/metabolic acidosis. 3. Acute delirium/hypothyroidism. 4. Hypertension. 5. Severe anemia, which is worse today. Hemoglobin is 6.9, previous is 7.9. Patient is on IV Folicet and ferrous sulfate. We will transfuse this patient if she is not [employer] and we will continue IV Pepcid q.12 and Folicet. PLAN 1. Continue IV antibiotics, IV cefepime. 2. Continue anxiolytic medications. 3. Will send blood counts, hemoglobin is 6.9. 4. Acute kidney injury is resolving. 5. Discharge plan to skilled facility. Will continue IV antibiotics. Patient is on IV cefepime and IV aztreonam. Job#: [id number] SANDRO
[2017-05-23] MEDS: SODIUM CHLORIDE 0.9% 1000ML 1,000 ML IV SCH (17:44)
[2017-05-23] MEDS: CEFEPIME HCL 1 GM VIAL IV SCH (21:29)
[2017-05-24] VITALS (7 sets, daily range): BP systolic 157–208; BP diastolic 69–95
[2017-05-24] MEDS: HYDROCODONE/APAP 7.5MG-325MG 1 EA TAB PO PRN (01:52)
[2017-05-24] MEDS: AZTREONAM (AZACTAM) 0.5 GM in SODIUM CHLORIDE 0.9% 50ML 50 ML IV SCH ×3 (03:30→19:50)
[2017-05-24] MEDS: LEVOTHYROXINE SODIUM 75 MCG TAB PO SCH (06:09)
[2017-05-24 07:27] LABS: BASOPHILS # (AUTO) 0.1 (0.0-0.1); BASOPHILS % 0.7 % (0.0-1.0); EOSINOPHILS # (AUTO) 0.4 (0.0-0.4); LYMPHOCYTES # (AUTO) 1.7 (1.0-3.2); LYMPHOCYTES % 24.4 % (18.0-39.1); MEAN CORPUSCULAR HEMOGLOBIN 32.1 pg (28-32); MEAN CORPUSCULAR HGB CONC 32.7 g/dL (31-35); MEAN CORPUSCULAR VOLUME 98.1 fL (81-99); MONOCYTES # (AUTO) 0.5 (0.2-0.8); MONOCYTES % 7.4 % (4.4-11.3); NEUTROPHILS # (AUTO) 4.2 (2.1-6.9); PLATELET COUNT 292 x10e3/uL (140-360); RED BLOOD COUNT 2.09 x10e6/uL (3.6-5.1); RED CELL DISTRIBUTION WIDTH 13.2 % (11.7-14.4)
[2017-05-24 07:35] LABS: HEMATOCRIT 20.5 % (34.2-44.1); HEMOGLOBIN 6.7 g/dL (12.0-16.0)
[2017-05-24] MEDS ORDERED: FUROSEMIDE INJ 10 MG/ML 2 ML VIAL IV PRN (08:30)
[2017-05-24] MEDS ORDERED: HYDRALAZINE HCL 25 MG TAB PO SCH (09:00)
[2017-05-24] MEDS ORDERED: PANTOPRAZOLE 40 MG 10ML VIAL IV SCH (09:00)
[2017-05-24] MEDS ORDERED: SODIUM CHLORIDE 0.9% 250ML 250 ML IV ONE (09:00)
[2017-05-24] MEDS: SUCRALFATE 1 GM TAB PO SCH ×2 (09:35→17:00)
[2017-05-24] MEDS: LORATADINE 10 MG TAB PO SCH (09:35)
[2017-05-24] MEDS: FAMOTIDINE 20 MG/2 ML VIAL IV SCH ×2 (09:35→17:00)
[2017-05-24] MEDS: PANTOPRAZOLE 40 MG 10ML VIAL IV SCH ×2 (09:35→17:00)
[2017-05-24] MEDS: NYSTATIN 15 GM POWDER UD BTL TOP SCH ×3 (09:36→20:18)
[2017-05-24] MEDS: DEPAKOTE DELAYED-RELEASE TAB 500 MG PO SCH ×2 (09:36→17:00)
[2017-05-24] MEDS: CARVEDILOL 12.5 MG TAB PO SCH ×2 (09:36→19:50)
[2017-05-24] MEDS: NIFEDIPINE CR 30 MG TAB PO SCH ×2 (09:36→19:50)
[2017-05-24] MEDS: SODIUM BICARBONATE 650 MG TAB PO SCH ×2 (09:36→17:00)
[2017-05-24] MEDS: HYDRALAZINE HCL 100 MG TABLET PO SCH ×3 (09:36→21:58)
[2017-05-24] MEDS: FLUOXETINE HCL 20 MG CAP PO SCH (09:36)
[2017-05-24] MEDS: ALPRAZOLAM 0.5 MG TAB PO SCH ×3 (09:36→20:18)
[2017-05-24] MEDS: CARBAMAZEPINE 200 MG TAB PO SCH ×2 (09:36→17:00)
[2017-05-24] MEDS: OXYBUTYNIN CHLORIDE 5 MG TAB PO SCH (09:36)
[2017-05-24 10:31] LABS: EOSINOPHILS % (MANUAL) 2 % (0-7); LYMPHOCYTES % (MANUAL) 27 % (19-48); METAMYELOCYTES % (MANUAL) 2 % (0-0); MONOCYTES % (MANUAL) 6 % (3.4-9.0); MYELOCYTES % (MANUAL) 1 % (0-0); NEUTROPHILS % (MANUAL) 61 % (40-74)
[2017-05-24 10:34] LABS: HYPOCHROMASIA SLIGHT; PLATELET ESTIMATE ADEQUATE; PLATELET MORPHOLOGY COMMENT NORMAL; RBC MORPHOLOGY COMMENT NORMAL
[2017-05-24] MEDS ORDERED: SODIUM CHLORIDE 0.9% 250ML 250 ML IV PRN (12:45)
[2017-05-24] MEDS: TRAMADOL HCL 50 MG TAB PO SCH ×2 (15:00→21:59)
--- NOTE | 2017-05-24 18:43 | Progress Note ---
DATE: May 24, 2017 TIME OF SERVICE: 7:45 a.m. SUBJECTIVE: Overnight no events. REVIEW OF SYSTEMS: Denies any dizziness. OBJECTIVE VITAL SIGNS: Reviewed. GENERAL: A tired-appearing woman resting in bed. HEENT: Anicteric. CARDIOVASCULAR: Normal S1 and S2. LUNGS: Moderate breath sounds. ABDOMEN: Soft, nontender, and nondistended. EXTREMITIES: No edema. SKIN: Dry. PSYCHIATRIC: Flat affect. LABS: Reviewed. MEDICATIONS: Reviewed. ASSESSMENT: A 66-year-old woman with: 1. Severe sepsis/bacteremia with Escherichia coli. 2. Acute kidney injury/metabolic acidosis. 3. Acute delirium/hypothyroidism. 4. Hypertension. 5. Severe anemia. 6. Iron deficiency. PLAN 1. Continue IV antibiotics. 2. Continue iron replacement therapy. 3. Blood transfusion. 4. Follow up renal function 5. Give 3 units packed red blood cell transfusion today. 6. Acute kidney injury is resolving. 7. Control blood pressure by titrating antihypertensive medications. 8. Treat anxiety with Xanax. 9. Discharge plan to skilled facility is still pending. Job#: [id number]
[2017-05-24] MEDS: CEFEPIME HCL 1 GM VIAL IV SCH (21:58)
[2017-05-24] MEDS ORDERED: SODIUM CHLORIDE 0.9% 250ML 250 ML ONE (22:06)
[2017-05-25] VITALS: BP 173/68
[2017-05-25] MEDS: AZTREONAM (AZACTAM) 0.5 GM in SODIUM CHLORIDE 0.9% 50ML 50 ML IV SCH ×2 (03:49→12:00)
[2017-05-25 04:00] VITALS: BP 213/86
[2017-05-25] MEDS ORDERED: LABETALOL HCL IV 5 MG/ML 20ML MDV IV PRN (04:00)
[2017-05-25] MEDS: LEVOTHYROXINE SODIUM 75 MCG TAB PO SCH (06:52)
[2017-05-25] MEDS: TRAMADOL HCL 50 MG TAB PO SCH ×2 (06:53→14:30)
[2017-05-25 07:23] LABS: BASOPHILS # (AUTO) 0.1 (0.0-0.1); BASOPHILS % 0.6 % (0.0-1.0); EOSINOPHILS # (AUTO) 0.5 (0.0-0.4); EOSINOPHILS % 5.7 % (0.0-6.0); HEMATOCRIT 27.3 % (34.2-44.1); LYMPHOCYTES # (AUTO) 1.6 (1.0-3.2); LYMPHOCYTES % 18.8 % (18.0-39.1); MEAN CORPUSCULAR HEMOGLOBIN 30.8 pg (28-32); MEAN CORPUSCULAR VOLUME 93.5 fL (81-99); MONOCYTES # (AUTO) 0.5 (0.2-0.8); MONOCYTES % 6.1 % (4.4-11.3); NEUTROPHILS # (AUTO) 5.5 (2.1-6.9); NEUTROPHILS % 66.1 % (38.7-80.0); PLATELET COUNT 296 x10e3/uL (140-360); RED BLOOD COUNT 2.92 x10e6/uL (3.6-5.1); RED CELL DISTRIBUTION WIDTH 16.1 % (11.7-14.4)
[2017-05-25] MEDS: FAMOTIDINE 20 MG/2 ML VIAL IV SCH (08:20)
[2017-05-25] MEDS: CARBAMAZEPINE 200 MG TAB PO SCH (08:20)
[2017-05-25] MEDS: NYSTATIN 15 GM POWDER UD BTL TOP SCH (08:20)
[2017-05-25] MEDS: SUCRALFATE 1 GM TAB PO SCH (08:20)
[2017-05-25] MEDS: HYDRALAZINE HCL 100 MG TABLET PO SCH ×2 (08:20→14:30)
[2017-05-25] MEDS: CLONIDINE HCL 0.2 MG TAB PO PRN ×2 (08:20→15:18)
[2017-05-25] MEDS: ALPRAZOLAM 0.5 MG TAB PO SCH ×2 (08:20→14:45)
[2017-05-25] MEDS: DEPAKOTE DELAYED-RELEASE TAB 500 MG PO SCH (08:20)
[2017-05-25] MEDS: CARVEDILOL 12.5 MG TAB PO SCH (08:20)
[2017-05-25] MEDS: LORATADINE 10 MG TAB PO SCH (08:20)
[2017-05-25] MEDS: NIFEDIPINE CR 30 MG TAB PO SCH (08:20)
[2017-05-25] MEDS: OXYBUTYNIN CHLORIDE 5 MG TAB PO SCH (08:20)
[2017-05-25] MEDS: SODIUM BICARBONATE 650 MG TAB PO SCH (08:20)
[2017-05-25] MEDS: FLUOXETINE HCL 20 MG CAP PO SCH (08:20)
[2017-05-25] MEDS: PANTOPRAZOLE 40 MG 10ML VIAL IV SCH (08:30)
[2017-05-25 08:39] VITALS: BP 201/91
[2017-05-25 12:48] VITALS: BP 208/98
[2017-05-25 15:30] VITALS: BP 169/80
== END 2017-05-25 15:16 | DRG 871 ==
LOC: ER 02:23 → ERHOLD 05:44 → MED/SURG3 05-18 00:37
PROVIDERS: ADMIT Internal Medicine; ATTEND Internal Medicine
PROC: 02HV33Z Insertion of Infusion Device into Superior Vena Cava, Percutaneous Approach (ICD-10-PCS; 2017-05-17)
PROC: 30243N1 Transfusion of Nonautologous Red Blood Cells into Central Vein, Percutaneous Approach (ICD-10-PCS; principal; 2017-05-24)
DX: A41.9 Sepsis, unspecified organism (principal); D57.00 Hb-SS disease with crisis, unspecified; G93.41 Metabolic encephalopathy; N17.9 Acute kidney failure, unspecified; N39.0 Urinary tract infection, site not specified; E87.2 Acidosis; E03.9 Hypothyroidism, unspecified; R65.20 Severe sepsis without septic shock; D50.9 Iron deficiency anemia, unspecified; B96.20 Unspecified Escherichia coli [E. coli] as the cause of diseases classified elsewhere; F41.9 Anxiety disorder, unspecified
CPT/HCPCS: 36415; 36430; 71020; 74176; 74470; 80048; 80053; 80156; 80164; 81001; 82270; 82550; 82553; 82728; 82948; 83036; 83518; 83540; 83605; 83735; 83880; 84439; 84443; 84466; 84484; 85014; 85018; 85025; 85610; 85730; 86376; 86850; 86900; 86920; 87040; 87070; 87071; 87086; 87186; 87205; 87400; 93005; 93306; 96367; 97139; 99284; J0692; J0696; J1940; J2916; J3370; J7030; J7050; P9016